=== PATIENT | male | born 1965 | race Asian ===

== ENCOUNTER 2024-04-24 08:32 | Outpatient (CLI) | payer BC ==
[2024-04-24] MEDS ORDERED: Magnevist 469MG/ML 20 ML VIAL ONE (08:56)
== END 2024-04-24 08:33 | disposition home or self-care (01) ==
LOC: CSHMRI 08:32
PROVIDERS: ATTEND Internal Medicine
DX: M79.602 Pain in left arm (principal); R53.1 Weakness; R93.7 Abnormal findings on diagnostic imaging of other parts of musculoskeletal system; M47.812 Spondylosis without myelopathy or radiculopathy, cervical region; M50.122 Cervical disc disorder at C5-C6 level with radiculopathy; M50.123 Cervical disc disorder at C6-C7 level with radiculopathy; M48.02 Spinal stenosis, cervical region
CPT/HCPCS: 72156